=== PATIENT | male | born 2000 | race Caucasian/White ===

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

== ENCOUNTER 2024-04-21 11:48 | Emergency (ER) | payer SELFPAY ==
[2024-04-21 11:54] VITALS: BP 151/84; PULSE 123; RESP 18; TEMP 36.6; O2SAT 99
--- NOTE | 2024-04-21 13:07 | ED_ITS ---
HPI - Male Genitourinary General: Chief complaint: Urogenital-Male Stated complaint: Refuses to give information Time Seen by Provider: 04/21/24 13:00 Source: patient Mode of arrival: ambulatory Limitations: no limitations History of Present Illness: This patient states that he is concerned about some level areas on the shaft of his penis have been present now approximately 3 years. He states they are not painful. He states they are there all the time and do not come and go. He denies any dysuria, penile discharge etc. Also states he has a rash on the trunk of his skin that he is wondering if it is related to possible herpes as well. Otherwise denies any fevers chills or other constitutional complaints. MD Complaint: possible STD exposure Associated symptoms: Deny dysuria, hematuria, nausea or vomiting Review of Systems Const: Denies: fever(s) or chills ENMT: Denies: throat pain or odynophagia GI: Denies: abdominal pain, nausea or vomiting : Denies: flank pain, difficulty urinating, dysuria, urinary frequency, hematuria, penile discharge or testicular pain Skin/Breast: Reports: rash and lesions; Denies: pruritus PFSH ED PFSH: Social History Smoking and tobacco/nicotine status: never used tobacco/nicotine Physical Exam Narrative: EXAM NARRATIVE: Patient makes good eye contact is rather quiet and reserved but will answer questions appropriately. Const: COMMON NORMALS: no acute distress and average body habitus GENERAL APPEARANCE: cooperative HENMT: COMMON NORMALS: normocephalic, Normal nasal mucous membranes and tur binates present and moist oral mucous membranes HEAD & SCALP: normocephalic NOSE: Normal nasal mucous membranes and turbinates present Eye: COMMON NORMALS: Equal, round and reactive pupils present and conjunctivae normal CONJUNCTIVA: Yes conjunctivae normal PUPIL: Yes Equal, round and reactive pupils present Resp: COMMON NORMALS: normal respiratory effort EFFORT & INSPECTION: Yes able to speak in complete sentences GI: COMMON NORMALS: Normal to inspection, nondistended, normoactive bowel sounds present, Soft to palpation, non-tender and No hepatosplenomegaly present PALPATION: Yes Soft to palpation and Yes No hepatosplenomegaly present : PENIS: normal penis, circumcised, no condylomata, not erythematous, papules (He has multiple minute flesh-colored papules in the hairbearing areas of hi), no pustules, no vesicles and no ulcerations MEATUS: meatus normal SCROTUM: Yes testes descended bilaterally Extremity: COMMON NORMALS: normal to inspection and full ROM Neuro: COMMON NORMALS: moves all extremities and no focal motor deficits Skin: COMMON NORMALS: no wounds NARRATIVE SKIN EXAM: Patient has several salmon-colored patches on his truncal skin. No excoriations, Course Vital Signs: Vital signs: Vital Signs Temperature 97.9 F 04/21/24 11:54 Pulse Rate 123 H 04/21/24 11:54 Respiratory Rate 18 04/21/24 11:54 Blood Pressure 151/84 04/21/24 11:54 Pulse Oximetry 99 04/21/24 11:54 Oxygen Delivery Me thod Room Air 04/21/24 11:54 MDM - Male Medical Decision Making This patient came to the emergency room because he was concerned about possible sexually transmitted disease specifically herpes. He did developed a area of concern on the shaft of his penis that has been constant for the last approximately 3 years. There was no associated vesicle history, urethral discharge history etc. His clinical exam was reassuring. His exam is consistent with pearly papules on the penile shaft without any evidence that suggest other STDs. A urinalysis was normal and a urine for GC and chlamydia is pending at this time as it is a send out. The patient also has an associated rash that he thought might be a factor in his presentation which is consistent with tinea versicolor which is being treated with selenium solution. Lab Data I reviewed the patient's lab results. Laboratory Results Urine Color Yellow (Yellow) 04/21/24 13:09 Urine Appearance Clear (CLEAR) 04/21/24 13:09 Urine pH 6 (5-7) 04/21/24 13:09 Ur Specific [place] 1.020 (1.005-1.030) 04/21/24 13:09 Urine Protein Neg (Negative) 04/21/24 13:09 Urine Glucose (UA) Norm (Normal) 04/21/24 13:09 Urine Ketones Negative (Negative) 04/21/24 13:09 Urine Blood Neg (Negative) 04/21/24 13:09 Urine Nitrate Negative (Negative) 04/21/24 13:09 Urine Bilirubin Neg (Negative) 04/21/24 13:09 Urine Urobilinogen Norm mg/dL (Negative) 04/21/24 13:09 Ur Leukocyte Esterase Negative (Negative) 04/21/24 13:09 No radiology studies performed this visit Discharge Plan Discharge Patient Disposition: Home Clinical Impression: Tinea versicolor, Pearly penile papules Condition: Stable Prescriptions: New selenium sulfide 2.5 % lotion 1 applic topical DAILY 7 Days Qty: 120 1RF No Action No Known Home Medications Discharge Orders: Discharge ED (Routine); Ordered 04/21/24 Ordered By: Rod Paulino Discharge Diet: Advance as tolerated Discharge Activity: Resume usual activity Patient Instructions: Opioid Safety, Pain Management Activity Restrictions/Additional Instructions: As we discussed your evaluation today in the emergency department did not reveal any serious condition. The test we have today are normal. There are additional tests that are send out and we will get those results in a few days and we will notify you if there is any abnormalities. We have provided a prescription for a lotion to use daily for the next 7 days and repeat in 1 week if you need to to help control your rash. If it anytime you have any other concerns or change in your condition you welcome to return to the emergency department or follow-up with your regular doctor. Coding Level of Care Code ED Retort Cooler for Florentino Martinez
[2024-04-21 13:21] LABS: Add Urine Microscopic? NO; Charge for UA Resulting for Rev
[2024-04-21 13:25] LABS: Bilirubin Urine Neg (Negative); Blood Urine Neg (Negative); Glucose Urine UA Norm (Normal); Ketones Urine Negative (Negative); Leukocyte Esterase Urine Negative (Negative); Nitrate Urine Negative (Negative); Protein Urine Neg (Negative); Urine Appearance Clear (CLEAR); Urine Color Yellow (Yellow); Urobilinogen Urine Norm (Negative); pH Urine 6 (5-7)
[2024-04-21 14:42] VITALS: PULSE 78; RESP 18; O2SAT 99
[2024-04-22 16:08] LABS: Chlamydia Trachomatis RNA TMA NOT DETECTED (NOT DETECTED); Neisseria Gonorrhoeae RNA, TMA NOT DETECTED (NOT DETECTED)
== END 2024-04-21 14:43 | disposition home or self-care (01) ==
PROVIDERS: Emergency Provider Emergency Medicine
DX: B36.0 Pityriasis versicolor (principal); R23.8 Other skin changes
CPT/HCPCS: 81003; 87491; 87591; 99283

== ENCOUNTER 2024-07-07 08:31 | Emergency (ER) | payer SELFPAY ==
[2024-07-07 08:36] VITALS: BP 134/66; PULSE 87; RESP 18; TEMP 36.8; O2SAT 97; BMI 17.4
[2024-07-07 08:38] VITALS: BP 134/66; PULSE 87; RESP 18; TEMP 36.8; O2SAT 97
--- NOTE | 2024-07-07 09:35 | W.ED.EYEPROB ---
HPI - Eye Problem General: Chief complaint: Eye Problems Stated complaint: left eye swelling Time Seen by Provider: 07/07/24 08:42 History of Present Illness: 24-year-old male presents to the emergency room with complaints of a nodule in his left upper eyelid. It has been present for the last several months does not affect his vision. He has not seen anyone for it. No fever sweats or chills. No pain. Related Data Previous Rx's Medication Instructions Recorded selenium sulfide 2.5 % lotion 1 applic topical DAILY 7 days #120 04/21/24 mL Allergies Allergy/AdvReac Type Severity Reaction Status Date / Time No Known Allergies Allergy Verified 04/21/24 11:57 Review of Systems Eyes: Denies: change in vision, blurry vision, photophobia, eye discomfort or eye redness [facility] ED PFSH: Social History Smoking and tobacco/nicotine status: never used tobacco/nicotine Physical Exam Narrative: EXAM NARRATIVE: On exam of the eyes extraocular's are intact sclera and conjunctiva clear pupils equal reactive to light Single chalazion in the upper left eyelid temporal portion. Is not actively draining inverted the eyelid there is no foreign bodies does appear to be coming to a point on the anterior aspect of the eyelid. No drainage at this time Visual acuity intact Course Vital Signs: Vital signs: Vital Signs Temperature 98.2 F 07/07/24 08:38 Pulse Rate 75 07/07/24 10:45 Respiratory Rate 18 07/07/24 08:38 Blood Pressure 113/62 07/07/24 10:45 Pulse Oximetry 96 07/07/24 10:45 Oxygen Delivery Me thod Room Air 07/07/24 08:38 MDM - Eye Problem Medical Decision Making No emergent condition at this time will discharge patient home made arrangements for him to follow-up with the ophthalmology clinic for excision. Return for problems. No radiology studies performed this visit Discharge Plan Discharge Patient Disposition: Home Clinical Impression: Chalazion left upper eyelid Condition: Stable Prescriptions: No Action selenium sulfide 2.5 % lotion 1 applic topical DAILY 7 Days Qty: 120 1RF Discharge Orders: Discharge ED (Routine); Ordered 07/07/24 Ordered By: George Nance Discharge Diet: Usual diet Discharge Activity: Resume usual activity Patient Instructions: Chalazion (ED), Opioid Safety, Pain Management Activity Restrictions/Additional Instructions: Thank you for choosing [facility] [place] for your healthcare needs today. It is very important that you follow up as instructed or that you return to the Emergency Department should you have concerns or if your condition changes or worsens in any way. You were seen today with a cyst on the left upper eyelid. This is known as a chalazion. Will remove ophthalmology in nonemergent setting. Coding Level of Care Code ED Cooker Casing for Florentino Martinez
[2024-07-07 10:45] VITALS: BP 113/62; PULSE 75; O2SAT 96
== END 2024-07-07 10:00 | disposition home or self-care (01) ==
PROVIDERS: Emergency Provider Family Medicine
DX: H00.14 Chalazion left upper eyelid (principal)
CPT/HCPCS: 99281